=== PATIENT | female | born 1955 | race Caucasian/White ===

== ENCOUNTER 2018-01-28 23:01 | Inpatient (IN) | payer MEDICAID ==
[~2018-01-28] VITALS: Ht 157.5 cm; Wt 122.2 kg
[2018-01-28 23:09] VITALS: Ht 157.5 cm; Wt 122.2 kg
[2018-01-29 00:29] LABS: BASOPHIL % 0.3 % (0-2); PLATELET COUNT 187 x10^3mcL (130-400)
[2018-01-29 00:34] LABS: CALCIUM 8.5 mg/dL (8.5-10.1); CREATININE SERUM 1.2 mg/dL (0.6-1.0)
[2018-01-29 00:39] LABS: BILIRUBIN TOTAL 0.4 mg/dL (0.20-1.00); TOTAL PROTEIN, SERUM 7.6 g/dL (6.4-8.2)
[2018-01-29 00:40] LABS: ALBUMIN 2.4 g/dL (3.4-5.0)
[2018-01-29] MEDS ORDERED: HYDROCHLOROTHIA25 MG PO (01:28)
[2018-01-29] MEDS ORDERED: METFORMIN HCL850 MG PO (01:28)
[2018-01-29] MEDS ORDERED: PERCOCET1 TAB PO (01:30)
[2018-01-29 02:24] LABS: MAGNESIUM 1.9 mg/dL (1.8-2.4); PHOSPHOROUS 3.8 mg/dL (2.5-4.9)
[2018-01-29 02:29] LABS: CHOLESTEROL/HDL RATIO 2.8
[2018-01-29 02:34] LABS: FREE T4 1.23 ng/dL (0.76-1.46); FREE THYROXINE INDEX 2.5 ug/dL (1.4-4.5); T4(THYROXINE) 7.5 ug/dL (4.7-13.3)
[2018-01-29 02:49] LABS: T3 TOTAL 0.82 ng/mL
[2018-01-29 04:47] VITALS: BP 155/77
[2018-01-29 07:42] LABS: PLATELET COUNT 187 x10^3mcL (130-400)
[2018-01-29 07:47] LABS: BASOPHIL % 0 % (0-2); RED CELL DISTRIBUTION WIDTH 14.7 % (11.5-14.5)
[2018-01-29 08:02] LABS: CALCIUM 9.2 mg/dL (8.5-10.1); CHLORIDE SERUM 100 mmol/L (98-107); CREATININE SERUM 0.8 mg/dL (0.6-1.0); GFR1 > 60 mL/min; GLUCOSE SERUM 177 mg/dL (74-106); POTASSIUM SERUM 4.2 mmol/L (3.5-5.1); SODIUM SERUM 136 mmol/L (136-145)
[2018-01-29 08:47] VITALS: BP 130/71
[2018-01-29 10:34] LABS: microscopic required? YES; urine erythrocyte NEGATIVE (NEGATIVE)
[2018-01-29 10:47] LABS: AMPHETAMINE QUAL UR NONE DETECTED (NEG <=1000)
[2018-01-29 13:18] VITALS: BP 136/69
[2018-01-29 17:56] VITALS: BP 144/77
[2018-01-29 19:20] VITALS: BP 128/72
[2018-01-30 05:58] VITALS: BP 138/72
[2018-01-30 07:03] LABS: CALCIUM 8.6 mg/dL (8.5-10.1); CARBON DIOXIDE 26.7 mmol/L (21-32); CHLORIDE SERUM 104 mmol/L (98-107); CREATININE SERUM 0.7 mg/dL (0.6-1.0); GFR1 > 60 mL/min; GLUCOSE SERUM 265 mg/dL (74-106); POTASSIUM SERUM 4.1 mmol/L (3.5-5.1); SODIUM SERUM 139 mmol/L (136-145)
[2018-01-30 07:11] LABS: BASOPHIL % 0 % (0-2); PLATELET COUNT 166 x10^3mcL (130-400); RED CELL DISTRIBUTION WIDTH 14.7 % (11.5-14.5)
[2018-01-30 08:40] VITALS: BP 119/73
[2018-01-30 17:20] VITALS: BP 125/73
[2018-01-30 20:44] VITALS: BP 146/74
[2018-01-31 05:58] VITALS: BP 113/51
[2018-01-31 08:36] VITALS: BP 112/70
[2018-01-31 13:20] LABS: BASOPHIL % 0.1 % (0-2); PLATELET COUNT 210 x10^3mcL (130-400); RED CELL DISTRIBUTION WIDTH 13.9 % (11.5-14.5)
[2018-01-31 13:34] LABS: CALCIUM 8.5 mg/dL (8.5-10.1); CARBON DIOXIDE 29.4 mmol/L (21-32); CHLORIDE SERUM 104 mmol/L (98-107); CREATININE SERUM 0.8 mg/dL (0.6-1.0); GFR1 > 60 mL/min; GLUCOSE SERUM 228 mg/dL (74-106); POTASSIUM SERUM 4.2 mmol/L (3.5-5.1); SODIUM SERUM 137 mmol/L (136-145)
[2018-01-31 16:15] VITALS: BP 130/63
[2018-01-31 22:39] VITALS: BP 151/78
[2018-02-01 04:40] VITALS: BP 150/77
[2018-02-01 07:28] LABS: CALCIUM 8.3 mg/dL (8.5-10.1); CHLORIDE SERUM 104 mmol/L (98-107); CREATININE SERUM 0.8 mg/dL (0.6-1.0); GFR1 > 60 mL/min; GLUCOSE SERUM 177 mg/dL (74-106); POTASSIUM SERUM 3.9 mmol/L (3.5-5.1); SODIUM SERUM 138 mmol/L (136-145)
[2018-02-01 08:49] LABS: PLATELET COUNT 160 x10^3mcL (130-400)
[2018-02-01 08:59] LABS: BASOPHIL % 0 % (0-2); RED CELL DISTRIBUTION WIDTH 15.2 % (11.5-14.5)
[2018-02-01 10:14] VITALS: BP 154/81
[2018-02-01 18:02] VITALS: BP 144/72
[2018-02-01 20:50] VITALS: BP 153/80
[2018-02-02 04:17] VITALS: BP 146/73
[2018-02-02 06:51] LABS: BASOPHIL % 0.2 % (0-2); PLATELET COUNT 142 x10^3mcL (130-400)
[2018-02-02 07:04] LABS: CALCIUM 7.8 mg/dL (8.5-10.1); CARBON DIOXIDE 30.3 mmol/L (21-32); CHLORIDE SERUM 108 mmol/L (98-107); CREATININE SERUM 0.7 mg/dL (0.6-1.0); GFR1 > 60 mL/min; GLUCOSE SERUM 121 mg/dL (74-106); POTASSIUM SERUM 4.4 mmol/L (3.5-5.1); SODIUM SERUM 144 mmol/L (136-145)
[2018-02-02 07:07] LABS: RED CELL DISTRIBUTION WIDTH 15.2 % (11.5-14.5)
[2018-02-02 09:28] VITALS: BP 143/80
[2018-02-02 14:00] VITALS: BP 158/94
[2018-02-02] MEDS ORDERED: PREDNISONE20 MG PO (15:41)
[2018-02-02 16:14] VITALS: BP 158/94
[2018-02-02 17:26] VITALS: BP 105/77
[2018-02-02 22:06] VITALS: BP 144/75
[2018-02-03 06:05] VITALS: BP 148/84
[2018-02-03 08:56] VITALS: BP 148/80
[2018-02-03 11:54] VITALS: BP 148/80
== END 2018-02-03 13:42 | disposition home or self-care (01) | DRG 346 ==
LOC: ED 23:01 → MU 01-29 01:21 → DU 01-29 01:21 → MU 01-29 11:07
PROVIDERS: Emergency Medicine; Family Medicine; Surgery
PROC: 03BT0ZX Excision of Left Temporal Artery, Open Approach, Diagnostic (ICD-10-PCS; principal; 2018-02-02 12:00)
DX: M31.6 Other giant cell arteritis (principal); N17.0 Acute kidney failure with tubular necrosis; E43 Unspecified severe protein-calorie malnutrition; E11.51 Type 2 diabetes mellitus with diabetic peripheral angiopathy without gangrene; G90.8 Other disorders of autonomic nervous system; E11.65 Type 2 diabetes mellitus with hyperglycemia; I10 Essential (primary) hypertension; R74.0 Nonspecific elevation of levels of transaminase and lactic acid dehydrogenase [LDH]; Z53.29 Procedure and treatment not carried out because of patient's decision for other reasons; E87.1 Hypo-osmolality and hyponatremia; H34.12 Central retinal artery occlusion, left eye; D64.9 Anemia, unspecified; Z90.5 Acquired absence of kidney; E66.9 Obesity, unspecified; E78.5 Hyperlipidemia, unspecified; T38.0X5A Adverse effect of glucocorticoids and synthetic analogues, initial encounter; Z90.49 Acquired absence of other specified parts of digestive tract; Z88.0 Allergy status to penicillin; Z88.6 Allergy status to analgesic agent; Z68.42 Body mass index [BMI] 45.0-49.9, adult
CPT/HCPCS: 83880; 84439; 97110-GP; 97116-GP; 97530-GP; 97535-GP; J1170; J1956; J2001; J2250; J2704; J2930; J3010; J3490; J7030; J7512; Q0092; Q9967

== ENCOUNTER 2020-06-14 04:17 | Emergency (ER) | payer MEDICAID ==
[~2020-06-14] VITALS: Ht 162.6 cm; Wt 136.1 kg
[~2020-06-14 04:17] MED LIST: HYDROCHLOROTHIA25 MG PO; METFORMIN HCL850 MG PO; PERCOCET1 TAB PO; PREDNISONE20 MG PO
[2020-06-14 04:34] VITALS: Ht 162.6 cm; Wt 136.1 kg
[2020-06-14 08:32] LABS: BASOPHIL % 0.3 % (0-2)
[2020-06-14 08:37] LABS: PLATELET COUNT 90 x10^3mcL (130-400); RED CELL DISTRIBUTION WIDTH 15.7 % (11.5-14.5)
[2020-06-14 09:04] LABS: CARBON DIOXIDE 27.6 mmol/L (21-32); CHLORIDE SERUM 106 mmol/L (98-107); CREATININE SERUM 0.7 mg/dL (0.6-1.0); GFR1 > 60 mL/min; GLUCOSE SERUM 125 mg/dL (74-106); SODIUM SERUM 142 mmol/L (136-145)
[2020-06-14 09:09] LABS: ALKALINE PHOSPHATASE 140 U/L (46-116); ALT/SGPT 55 U/L (14-59); AST/SGOT 38 U/L (15-37); BILIRUBIN TOTAL 0.6 mg/dL (0.20-1.00); TOTAL PROTEIN, SERUM 6.9 g/dL (6.4-8.2)
[2020-06-14 09:10] LABS: ALBUMIN 3.2 g/dL (3.4-5.0)
[2020-06-14 10:22] VITALS: BP 158/90
== END 2020-06-14 10:22 | disposition home or self-care (01) ==
LOC: ED 04:17
PROVIDERS: Emergency Medicine
DX: F41.9 Anxiety disorder, unspecified (principal); I10 Essential (primary) hypertension; Z88.0 Allergy status to penicillin; Z88.6 Allergy status to analgesic agent
CPT/HCPCS: Q0092